=== PATIENT | female | born 1935 | race Caucasian/White ===

== ENCOUNTER → 2017-09-16 | Outpatient (CLI) | payer MEDICARE ==
[~2017-09-16] MED LIST: ALPR.25 PO; ALUM320SU PO; Amiodarone HCl200 MG PO; Aspirin EC81 MG PO; BUME2 PO; CHOL10002 PO; CITA20 PO; CYAN1000 PO; DIGO.125; DIGO.25 PO; DILT180ER PO; FURO20 PO; LORA.5 PO; Lasix40 MG PO; METO50 PO; METO50ER PO; MIDO5 PO; Macrobid 100 M100 MG PO; Micro-K10 MEQ PO; Norco 5-325 Ta1 EACH PO; PANT40 PO; POTCHL20ER PO; PRED10 PO; TRAM50 PO; XARELTO15 MG PO; Zofran Odt4 MG PO
[2017-09-16 14:19] LABS: Creatinine Urine 14.1 mg/dL (27.00-270.00)
== END ==
LOC: LAB SHORT 12:04 → LAB 12:04 → LAB FUT 09-14 10:35
PROVIDERS: Internal Medicine Nephrology
DX: E24.9 Cushing's syndrome, unspecified (principal)
CPT/HCPCS: 81050; 82570